=== PATIENT | female | born 1995 | race Caucasian/White ===

== ENCOUNTER 2017-01-23 17:09 | Emergency (ER) | payer OTHER ==
[2017-01-23 17:15] VITALS: BP 109/79; PULSE 76; RESP 20; TEMP 97.9; O2SAT 96
[2017-01-23] MEDS ORDERED: Albuterol-Ipratrop 3 mg / 0.5 (3 ml) UD INH STA (17:44)
--- NOTE | 2017-01-23 17:48 | ED PDOC ---
HPI: CCC, URI, Sore Throat Time Seen by Provider: 01/23/17 17:27 Chief Complaint (Nursing): Flu-like Symptoms Chief Complaint (Provider): Cough History Per: Patient History/Exam Limitations: no limitations Onset/Duration Of Symptoms: Days ( 1 1/2 weeks) Additional Complaint(s): 22 year old female presents to the ED complaining of a cough with an associated sore throat for about 1 week. Patient has asthma for which she regularly takes albuterol inhaler. She reports using the inhaler with no relief from cough. Denies taking any medications. No recent travel or known sick contacts. PMD: Dr. Alli Johnson MD Past Medical History Reviewed: Historical Data, Nursing Documentation, Vital Signs Vital Signs: Last Vital Signs Temp 97.9 F 01/23/17 17:12 Pulse 76 01/23/17 17:12 Resp 20 01/23/17 17:12 BP 109/79 01/23/17 17:12 Pulse Ox 96 01/23/17 18:41 - Medical History PMH: Asthma, Migraine Other PMH: heart murmur - Surgical History Surgical History: No Surg Hx - Family History Family History: States: No Known Family Hx - Living Arrangements Living Arrangements: With Family - Social History Current smoker - smoking cessation education provided: No Alcohol: None Drugs: Denies - Immunization History Hx Tetanus Toxoid Vaccination: No Hx Influenza Vaccination: No Hx Pneumococcal Vaccination: No - Home Medications Home Medications: Ambulatory Orders Medication Instructions Recorded Albuterol HFA [Ventolin HFA 90 1 puff IH PRN PRN 01/01/16 mcg/actuation (8 g)] Aspirin/Acetaminophen/Caffeine 1 each PO DAILY PRN 11/05/16 [Excedrin Migraine Caplet] Azithromycin [Zithromax] 250 mg PO DAILY #6 tab 01/23/17 Benzonatate 200 mg PO TID PRN #20 capsule 01/23/17 - Allergies Allergies/Adverse Reactions: Allergies Allergy/AdvReac Type Severity Reaction Status Date / Time Penicillins Allergy Intermediate RASH Verified 01/01/16 08:54 Review of Systems ROS Statement: Except As Marked, All Systems Reviewed And Found Negative Constitutional: Negative for: Fever, Chills ENT: Positive for: Throat Pain Respiratory: Positive for: Cough Gastrointestinal: Negative for: Nausea, Vomiting Neurological: Negative for: Headache, Dizziness Physical Exam - Reviewed Nursing Documentation Reviewed: Yes Vital Signs Reviewed: Yes - Physical Exam Appears: Positive for: Well, Non-toxic, No Acute Distress Head Exam: Positive for: ATRAUMATIC, NORMAL INSPECTION, NORMOCEPHALIC Skin: Positive for: Normal Color Eye Exam: Positive for: Normal appearance ENT: Positive for: TM Is/Are (normal bilaterally), Pharyngeal Erythema, Tonsillar Swelling. Negative for: Tonsillar Exudate Cardiovascular/Chest: Positive for: Regular Rate, Rhythm Respiratory: Positive for: Rhonchi (bilaterally). Negative for: Accessory Muscle Use, Wheezing, Respiratory Distress Extremity: Negative for: Pedal Edema Neurologic/Psych: Positive for: Alert, Oriented - Laboratory Results Urine POC: Negative - ECG O2 Sat by Pulse Oximetry: 96 (RA) Pulse Ox Interpretation: Normal - Other Rad CXR X-Ray: Interpreted by Me, Viewed By Me X-Ray Interpretation: no acute finding Nebulizer Treatments/Peak Flow - Duonebs Number of Bronchodilator Doses given?: 1 (duoneb) - Pre/Post Peak Flow Pre Treatment Peak Flow: 250 Post treatment Peak Flow: 300 - Steroid Treatment Steroid: Not Clinically Indicated - Clinical Response Clinical Response: Improved Medical Decision Making Medical Decision Making: Time: 17:44 Clinical Impression: 22 year old female with URI symptoms. Initial Plan: * Urine * Chest X-ray * Duoneb 3 ml INH * Throat Culture * Nebulizer Treatment * Peak Flow Pre/ Post * Influenza A B * Rapid Strep Group Time: 18:41 --Labs reviewed and are negative for flu and strep. --CXR shows no infiltrate --Will d/c with rx zithromax, tessalon perles and ventolin inhaler. Advised fluids, rest and follow up with PMD in 2-3 days. Scribe Attestation: Documented by Chapis Castañeda, acting as a scribe for Ayaka Levine PA-C Provider Scribe Attestation: All medical record entries made by the Scribe were at my direction and personally dictated by me. I have reviewed the chart and agree that the record accurately reflects my personal performance of the history, physical exam, medical decision making, and the department course for this patient. I have also personally directed, reviewed, and agree with the discharge instructions and disposition. Disposition - Clinical Impression Clinical Impression: Acute bronchitis - Patient ED Disposition Is Patient to be Admitted: No Counseled Patient/Family Regarding: Studies Performed, Diagnosis, Need For Followup, Rx Given - Disposition Referrals: Alli Johnson MD [Family Provider] - Disposition: Routine/Home Disposition Time: 19:21 Condition: STABLE Additional Instructions: Take rx meds as directed. Rest and drink plenty of fluids. Follow up with primary care doctor in 2-3 days. Prescriptions: Azithromycin [Zithromax] 250 mg PO DAILY #6 tab Benzonatate 200 mg PO TID PRN #20 capsule PRN Reason: Cough Instructions: Acute Bronchitis (ED) Forms: [facility] (Frisian), [facility] ED School/Work Excuse
[2017-01-23] MEDS ORDERED: Albuterol-Ipratrop 3 mg / 0.5 (3 ml) UD ONE (18:04)
--- NOTE | 2017-01-23 18:48 | RAD ---
HISTORY: cough COMPARISON: None available. TECHNIQUE: Chest PA and lateral FINDINGS: LUNGS: No focal consolidation. Please note that chest x-ray has limited sensitivity for the detection of pulmonary masses. PLEURA: No significant pleural effusion identified. No definite pneumothorax . CARDIOVASCULAR: The cardiomediastinal silhouette appears within normal limits of size. OSSEOUS STRUCTURES: No acute osseous abnormality identified. VISUALIZED UPPER ABDOMEN: Unremarkable. OTHER FINDINGS: None. IMPRESSION: No focal consolidation, significant pleural effusion, or definite pneumothorax identified.
== END 2017-01-23 21:55 | disposition home or self-care (01) ==
LOC: H.ER 17:09
DX: J20.9 Acute bronchitis, unspecified (principal); Z88.0 Allergy status to penicillin; J45.909 Unspecified asthma, uncomplicated

== ENCOUNTER 2017-02-19 00:42 | Emergency (ER) | payer OTHER ==
[2017-02-19 00:50] VITALS: BP 103/79; PULSE 69; RESP 18; TEMP 98; O2SAT 97
[2017-02-19] MEDS ORDERED: Albuterol-Ipratrop 3 mg / 0.5 (3 ml) UD INH STA (01:16)
[2017-02-19] MEDS ORDERED: Albuterol-Ipratrop 3 mg / 0.5 (3 ml) UD ONE (01:23)
--- NOTE | 2017-02-19 01:26 | ED PDOC ---
HPI: CCC, URI, Sore Throat Time Seen by Provider: 02/19/17 00:50 Chief Complaint (Nursing): Cough, Cold, Congestion History Per: Patient History/Exam Limitations: no limitations Onset/Duration Of Symptoms: Days (3 days ) Current Symptoms Are (Timing): Still Present Location Of Pain: Throat Associated Symptoms: Sore Throat, Cough, Vomiting. denies: Fever Severity: Moderate Additional Complaint(s): CC: Cough and sore throat HPI: 22 YO Female with PMH of asthma, migraine headaches presents to [facility] ED for cough and sore throat x 3 days. Pt states that her cough started 3 days ago , then subsequently pt had a sore throat and today she started having 2x episode of post-tussive emesis. Emesis was described as clear, food particles and no blood noted. Cough is most non-productive with occasional white mucus. Denies chest pain, dyspnea, n/c/d and remains afebrile. Of note, pt was seen in ED 3 weeks ago with similar symptoms where she was given azithromycin after which her symptoms resolved. PMH: asthma SurgHx: denies SH: occasional smoking, social alcohol and denies illicit drug use FH: arthritis Meds: albuterol prn Allergies: penicillin Past Medical History Vital Signs: Last Vital Signs Temp 98 F 02/19/17 00:46 Pulse 69 02/19/17 00:46 Resp 18 02/19/17 00:46 BP 103/79 02/19/17 00:46 Pulse Ox 97 02/19/17 03:12 - Medical History PMH: Arthritis, Asthma, Bronchitis, Migraine - Surgical History Surgical History: No Surg Hx - Family History Family History: States: Other Other Family History: Arthritis - Social History Current smoker - smoking cessation education provided: Yes Alcohol: Social Drugs: Denies - Immunization History Hx Tetanus Toxoid Vaccination: No Hx Influenza Vaccination: No Hx Pneumococcal Vaccination: No - Home Medications Home Medications: Ambulatory Orders Medication Instructions Recorded Albuterol HFA [Ventolin HFA 90 1 puff IH PRN PRN 01/01/16 mcg/actuation (8 g)] Aspirin/Acetaminophen/Caffeine 1 each PO DAILY PRN 11/05/16 [Excedrin Migraine Caplet] Azithromycin [Zithromax] 250 mg PO DAILY #6 tab 01/23/17 Benzonatate 200 mg PO TID PRN #20 capsule 01/23/17 Albuterol HFA [Ventolin HFA 90 1 - 2 puff IH Q4H PRN #1 bottle 02/19/17 mcg/actuation (8 g)] Azithromycin [Zithromax] 250 mg PO DAILY #6 tab 02/19/17 - Allergies Allergies/Adverse Reactions: Allergies Allergy/AdvReac Type Severity Reaction Status Date / Time Penicillins Allergy Intermediate RASH Verified 01/01/16 08:54 Review of Systems Constitutional: Negative for: Fever, Chills Eyes: Negative for: Pain, Vision Change ENT: Negative for: Ear Pain, Ear Discharge Cardiovascular: Negative for: Chest Pain, Palpitations Respiratory: Positive for: Cough. Negative for: Shortness of Breath, Sputum Gastrointestinal: Positive for: Vomiting. Negative for: Nausea, Abdominal Pain , Diarrhea, Constipation Genitourinary Female: Negative for: Dysuria, Frequency Neurological: Negative for: Weakness, Numbness Psych: Negative for: Anxiety Physical Exam - Reviewed Vital Signs Reviewed: Yes - Physical Exam Appears: Positive for: Uncomfortable Head Exam: Positive for: ATRAUMATIC, NORMAL INSPECTION, NORMOCEPHALIC Skin: Positive for: Normal Color, Warm, Dry Eye Exam: Positive for: Normal appearance, EOMI ENT: Positive for: TM Is/Are (erythematous and bulging), Sinus Pain/Drainage ( maxillary sinus tenderness), Pharyngeal Erythema, Tonsillar Swelling. Negative for: Tonsillar Exudate Neck: Positive for: Normal, Painless ROM Cardiovascular/Chest: Positive for: Regular Rate, Rhythm. Negative for: Murmur Respiratory: Positive for: Normal Breath Sounds, Wheezing (soft on expiration, on lower lobes ) Gastrointestinal/Abdominal: Positive for: Normal Exam, Bowel Sounds, Soft Extremity: Positive for: Normal ROM Neurologic/Psych: Positive for: Alert, Oriented - Laboratory Results Result Diagrams: 02/19/17 02:04 02/19/17 02:04 - ECG O2 Sat by Pulse Oximetry: 97 - Progress ED Course And Treament: 22 YO female with PMH of asthma is seen in ED for sore throat, cough and post- tussive emesis. -cbc -cmp -influenza -strep -nebulizer treatment -dunab -motrin -ED Pt seen and assessed. Pt feel better after the meds. Labs reviewed with pt ED preg neg Flu and strep neg Blood work appreciated, wnl Results reviewed with pt. Pt d/c to home with follow up with PMD. Pt agrees with plan. D/c home with albuterol, azithromycin Disposition - Clinical Impression Clinical Impression: Cough - Disposition Referrals: [facility] [Outside] [facility] [Outside] Disposition Time: 03:10 Condition: IMPROVED Additional Instructions: bronchitis follow up with your primary doctor in 1-2 days return to the ED with any worsening or concerning symptoms Prescriptions: Albuterol HFA [Ventolin HFA 90 mcg/actuation (8 g)] 1 - 2 puff IH Q4H PRN #1 bottle PRN Reason: Wheezing Azithromycin [Zithromax] 250 mg PO DAILY #6 tab Instructions: Acute Bronchitis (ED) Forms: [facility] (Mongolian)
[2017-02-19 02:12] LABS: BASO % 0.5 % (0.0-2.0); EOS # 0.4 K/uL (0.0-0.7); HEMATOCRIT 37.3 % (34.0-47.0); LYMPH # 2.5 K/uL (1.0-4.3); LYMPH % 42.3 % (20.0-40.0); MEAN CORPUSCULAR HEMOGLOBIN 29.4 pg (27.0-31.0); MEAN CORPUSCULAR HGB CONC 32.7 g/dL (33.0-37.0); MEAN PLATELET VOLUME 10.9 fl (7.2-11.7); MONO # 0.6 K/uL (0.0-0.8); MONO % 9.6 % (0.0-10.0); NEUT # 2.4 K/uL (1.8-7.0); NEUT % 40.6 % (50.0-75.0); NRBC % 0.1 % (0.0-0.0); RED CELL DISTRIBUTION WIDTH 13.2 % (11.5-14.5); WHITE BLOOD COUNT 5.8 K/uL (4.8-10.8)
[2017-02-19 02:20] LABS: BLOOD UREA NITROGEN 11 mg/dl (7-17); CARBON DIOXIDE 28 mmol/L (22-30); CHLORIDE 102 mmol/L (98-107); GFR AFRICAN-AMERICAN > 60; GLUCOSE,RANDOM 85 mg/dL (65-105); SODIUM 140 mmol/l (132-148)
== END 2017-02-19 03:15 | disposition home or self-care (01) ==
LOC: H.ER 00:42
DX: J45.909 Unspecified asthma, uncomplicated (principal); F17.200 Nicotine dependence, unspecified, uncomplicated; Z88.0 Allergy status to penicillin